=== PATIENT | female | born 1970 | race Caucasian/White ===

== ENCOUNTER 2017-11-11 22:28 | Inpatient (IN) ==
[2017-11-11] MEDS ORDERED: *HR* OxyCODONE/APAP 5/325 TABLET PO ONE (23:25)
--- NOTE | 2017-11-11 23:26 | Emergency Department Note ---
Disposition Clinical Impression: Osteomyelitis Qualifiers: Osteomyelitis type: unspecified type Osteomyelitis location: foot Laterality: right Qualified Code(s): M86.9 - Osteomyelitis, unspecified Hyperglycemia due to type 2 diabetes mellitus Qualifiers: Diabetes mellitus director long term care insulin use: without director long term care use Qualified Code(s ): E11.65 - Type 2 diabetes mellitus with hyperglycemia Disposition: Admitted As Inpatient Condition: Good Referrals: NONE,PCP [Primary Care Provider] - Forms: ED Satisfaction Letter Time of Disposition: 01:25 (Dr Schuster) Lower Extremity Injury HPI - General Chief Complaint: ED Extremity Injury, Lower Stated Complaint: PAIN AND SWELLING TO RIGHT FOOT Time Seen by Provider: 11/11/17 22:53 Source: patient Limitations: no limitations Nursing Notes Reviewed: Yes Vital Signs Reviewed: Yes - History of Present Illness HPI Narrative: Acute on chronic right foot pain for the past 2 weeks. The patient has history of toe amputation in February 2017. The patient did not have a podiatry follow- up after surgery. Pt Subjective Complaint: foot injury Onset (ago): week(s) (2) Place: home Pain Scale: 9 Improves with: immobilization Worsens with: weight bearing, movement, palpation Associated symptoms: Reports: unable to bear weight, swelling - Related Data Home Medications Medication Instructions Recorded Confirmed Albuterol Sulfate [Albuterol 1 puff IH PRN PRN 03/06/15 03/22/17 Inhaler] Albuterol Sulfate [Albuterol 1 puff IH PRN PRN 03/06/15 03/22/17 Inhaler] CloNIDine HCl 0.3 mg PO BID 03/06/15 03/22/17 DiphenhydraMINE [Benadryl] 25 mg PO HS 03/06/15 03/22/17 Duloxetine HCl [Cymbalta] 90 mg PO DAILY 03/06/15 03/22/17 Folic Acid 1 mg PO DAILY 03/06/15 03/22/17 Gabapentin [Neurontin] 600 mg PO QID 03/06/15 03/22/17 Losartan Potassium [Cozaar] 100 mg PO DAILY 03/06/15 11/11/17 Mometasone/Formoterol [Dulera 200 8.8 gm IH BID 03/06/15 11/11/17 Mcg/5 Mcg Inhaler] Montelukast [Singulair] 10 mg PO DAILY 03/06/15 11/11/17 Oxycodone HCl/Acetaminophen 1 each PO Q4HR 03/06/15 11/11/17 [Percocet 10-325 mg Tablet] Spironolactone [Aldactone] 50 mg PO DAILY 03/06/15 11/11/17 Vitamin E 400 unit PO DAILY 03/06/15 11/11/17 hydroCHLOROthiazide 50 mg PO DAILY 03/06/15 11/11/17 [Hydrochlorothiazide] Allergies Allergy/AdvReac Type Severity Reaction Status Date / Time amitriptyline Allergy Severe Difficulty Verified 03/29/17 06:54 Breathing ciprofloxacin Allergy Severe Rash Verified 03/29/17 06:56 codeine Allergy Severe Migraine Verified 03/29/17 06:57 daptomycin [From Cubicin] Allergy Severe Hives Verified 11/11/17 22:29 dichloralphenazone Allergy Severe Migraine Verified 11/11/17 22:29 [From Midrin] Hydromorphone [From Dilaudid] Allergy Severe Anxiety Verified 11/11/17 22:29 ibuprofen Allergy Severe Seizure Verified 11/11/17 22:29 Isometheptene [From Midrin] Allergy Severe Migraine Verified 11/11/17 22:29 latex Allergy Severe Hives Verified 11/11/17 22:29 lisinopril Allergy Unknown unknown Verified 11/11/17 22:29 morphine Allergy Unknown unknown Verified 11/11/17 22:29 nifedipine Allergy Unknown unknown Verified 11/11/17 22:29 Sulfa (Sulfonamide Allergy Unknown unknown Verified 11/11/17 22:29 Antibiotics) sulfamethoxazole Allergy Unknown unknown Verified 11/11/17 22:29 [From Bactrim] sumatriptan [From Imitrex] Allergy Unknown unknown Verified 11/11/17 22:29 trimethoprim [From Bactrim] Allergy Unknown unknown Verified 11/11/17 22:29 All systems ED: reviewed and negative except as stated. Review of Systems: As Per HPI Past Medical History - Past Medical History Medical history: Reports: arthritis, asthma, diabetes, fibromyalgia, hyperlipidemia, hypertension, migraine, other Surgical history: Reports: cholecystectomy, orthopedic, other, sinus surgery, other Psychiatric history: Reports: anxiety, depression - Social History Smoking Status: Current every day smoker Smokeless Tobacco Status: No Alcohol use: Reports: rarely Drug use: Reports: none Physical Exam - General Limitations: no limitations General appearance: alert, in distress - Head Head exam: atraumatic, normocephalic, normal inspection - Neck Neck exam: Present: normal inspection, full ROM, trachea midline - Chest Chest inspection: Present: normal inspection, symmetric chest wall rise - Respiratory Respiratory exam: Present: normal lung sounds bilaterally - Cardiovascular Cardiovascular exam: Present: tachycardia, normal heart sounds. Absent: JVD - Abdominal Exam Abdominal exam: Present: soft, Non-Tender. Absent: tenderness, distention, guarding, rebound, rigidity - Expanded Lower Extremity Exam Hip/Pelvis exam: Present: normal inspection, full ROM Upper leg exam: Present: normal inspection, full ROM Knee exam: Present: normal inspection, full ROM Lower leg exam: Present: normal inspection, full ROM Ankle exam: Present: swelling (Right ankle). Absent: ecchymosis, deformity, crepitus, erythema Foot/toe exam: Present: tenderness (Right foot), swelling, erythema, other (Big Toe amputation) Neurovascular/Tendon exam: Present: normal capillary refill - Neurological Exam Neurological exam: Present: alert, oriented X3 - Psychiatric Psychiatric exam: Present: normal affect, normal mood - Skin Skin exam: Present: warm, dry, intact, normal color Course Vital Signs Temperature 99.4 F 11/11/17 22:38 Pulse Rate 118 11/11/17 22:38 Respiratory Rate 18 11/11/17 22:38 Blood Pressure 117/77 11/11/17 22:38 O2 Sat by Pulse Oximetry 94 11/11/17 22:38 Temperature 99.4 F 11/11/17 22:38 Pulse Rate 100 11/12/17 01:05 Respiratory Rate 14 11/12/17 01:05 Blood Pressure 126/98 11/12/17 01:05 O2 Sat by Pulse Oximetry 94 11/12/17 01:05 Oxygen Delivery Oxygen Delivery Room Air Extremity Injury, Lower - MDM Narrative Medical decision making narrative: Foot pain secondary to potential osteomyelitis. Hyperglycemia secondary to diabetes is uncontrolled secondary to medical noncompliance. The patient was given insulin and IV fluids as well as IV vancomycin for potential osteomyelitis. The patient will be admitted to the hospital for further treatment and evaluation. Patient is amenable with current disposition and plan. Discussed the case with hospitalist. - Lab Data Result diagrams: 11/12/17 00:34 11/12/17 00:34 Lab Results 11/12/17 11/12/17 11/12/17 Range/Units 00:34 00:34 00:34 WBC 16.5 H (4.3-11.1) K/mcL RBC 4.80 (3.82-4.97) M/mcL Hgb 12.7 (11.5-15.4) g/dL Hct 36.9 (35.3-44.9) % MCV 76.9 L (83.0-100.0) fL MCH 26.5 L (28.0-33.3) pg MCHC 34.4 (31.6-35.5) g/dL RDW 13.4 (11.5-14.5) % Plt Count 591 H (140-400) K/mcL MPV 10.4 (9.4-12.4) fL Immature Gran % 0.9 (0-4) % Seg Neutrophils % 84.5 % Lymphocytes % 10.3 % Monocytes % 3.9 % Eosinophils % 0.2 % Basophils % 0.2 % Neutrophils # 13.9 H (1.6-8.9) K/mcL Lymphocytes # 1.7 (0.6-4.6) K/mcL Monocytes # 0.6 (0.0-1.3) K/mcL Eosinophils # 0.0 (0.0-0.6) K/mcL Basophils # 0.0 (0.0-0.2) K/mcL ESR 111 H (0-20) mm/hr Sodium 121 L (136-145) mEq/L Potassium 3.3 L (3.5-5.1) mEq/L Chloride 80 L (98-107) mEq/L Carbon Dioxide 29 (23-29) mEq/L BUN 15 (6-20) mg/dL Creatinine 0.61 (0.60-1.20) mg/dL Est GFR ( Amer) > 60 (> 60) Est GFR (Non-Af Amer) > 60 (> 60) BUN/Creatinine Ratio 25 (6-26) Glucose 547 H* (70-105) mg/dL Calculated Osmolality 278 L (280-300) Calcium 9.7 (8.6-10.3) mg/dL - Radiology Data Radiology results reviewed: Yes I reviewed the patient's radiology results. Foot X-Ray 11/11/17 23:25 IMPRESSION: Evidence of previous transmetatarsal 1st ray amputation. There is mixed osteolysis and sclerosis within the stump. Marked progressive collapse and fragmentation of midfoot structures, with osteolysis also involving the proximal metatarsals. These findings are nonspecific, and can be seen in both aggressive osteomyelitis and neuropathic arthropathy. D/ / Phani Acosta MD / Phani Acosta MD Interpreting Provider: Phani Acosta MD
[2017-11-12] MEDS ORDERED: Insulin Human Regular 15 UNIT in 0.9 % Sodium Chloride 10 ML IV ONE (00:27)
[2017-11-12] MEDS ORDERED: 0.9 % Sodium Chloride 1,000 ML IVC ONE (00:27)
[2017-11-12 00:48] LABS: Basophils % 0.2 %; Eosinophils % 0.2 %; Hematocrit 36.9 % (35.3-44.9); Hemoglobin 12.7 g/dL (11.5-15.4); Immature Granulocytes % 0.9 % (0-4); Lymphocytes # 1.7 K/mcL (0.6-4.6); Lymphocytes % 10.3 %; Mean Corpuscular HGB Conc 34.4 g/dL (31.6-35.5); Mean Corpuscular Hemoglobin 26.5 pg (28.0-33.3); Mean Corpuscular Volume 76.9 fL (83.0-100.0); Mean Platelet Volume 10.4 fL (9.4-12.4); Monocytes % 3.9 %; Neutrophils # 13.9 K/mcL (1.6-8.9); Platelet Count 591 K/mcL (140-400); Red Cell Distribution Width 13.4 % (11.5-14.5); Segmented Neutrophils % 84.5 %
[2017-11-12 00:49] LABS: Monocytes # 0.6 K/mcL (0.0-1.3)
[2017-11-12] MEDS ORDERED: Ondansetron 4 MG/2 ML VIAL ONE ×2 (01:00→04:14)
[2017-11-12] MEDS: Ondansetron 4 MG/2 ML VIAL IVP ONE ×2 (01:02→01:09)
[2017-11-12 01:09] LABS: BUN/Creatinine Ratio 25 (6-26); Blood Urea Nitrogen 15 mg/dL (6-20); Calcium 9.7 mg/dL (8.6-10.3); Carbon Dioxide 29 mEq/L (23-29); Chloride 80 mEq/L (98-107); Glucose 547 mg/dL (70-105); Osmolality,Calculated 278 (280-300); Potassium 3.3 mEq/L (3.5-5.1); Sodium 121 mEq/L (136-145); eGFR For African Americans > 60 (> 60); eGFR For Non-African Americans > 60 (> 60)
[2017-11-12] MEDS ORDERED: *HR* OxyCODONE Immed Rel 5 MG TABLET PO STA (02:32)
[2017-11-12] MEDS ORDERED: Naloxone 0.4 MG/ML INJ IVP PRN (04:14)
[2017-11-12] MEDS ORDERED: Ondansetron 4 MG/2 ML VIAL IVP PRN (04:14)
[2017-11-12] MEDS: cloNIDine HCl 0.1 MG TABLET PO SCH ×2 (08:55→20:47)
[2017-11-12] MEDS: Gabapentin 300 MG CAPSULE PO SCH ×4 (08:57→20:47)
[2017-11-12] MEDS: 0.9 % Sodium Chloride 1,000 ML IVC SCH (08:57)
[2017-11-12] MEDS ORDERED: Folic Acid 1 MG TABLET PO SCH (09:00)
[2017-11-12] MEDS ORDERED: Spironolactone 25 MG TABLET PO SCH (09:00)
[2017-11-12] MEDS ORDERED: hydroCHLOROthiazide 25 MG TABLET PO SCH (09:00)
[2017-11-12] MEDS: *HR* OxyCODONE Immed Rel 5 MG TABLET PO PRN ×2 (09:04→18:41)
[2017-11-12] MEDS: Budesonide/Formoterol 160/4.5 MDI IH SCH ×2 (09:21→22:20)
[2017-11-12] MEDS ORDERED: Dextrose Gel 15 GM PO PRN ×2 (09:42)
[2017-11-12] MEDS ORDERED: *HR* Dextrose 50 % in Water (Syg) 50 ML SYRINGE IVP PRN (09:42)
[2017-11-12] MEDS ORDERED: D5% in Water 1,000 ML IVC PRN (09:42)
[2017-11-12] MEDS ORDERED: Fluconazole 100 MG TABLET PO ONE (11:55)
--- NOTE | 2017-11-12 12:02 | Internal Med History&Physical ---
Date of Encounter: 11/12/17 Time of Encounter: 11:20 Assessment and Plan (1) Osteomyelitis Current visit: Yes Status: Acute Suspect extensive osteomyelitis with cellulitis. Will order foot MRI to further evaluate. Qualifiers: Osteomyelitis type: unspecified type Osteomyelitis location: foot Laterality: right Qualified Code(s): M86.9 - Osteomyelitis, unspecified (2) Electrolyte imbalance Current visit: Yes Status: Acute Hyponatremia due to diuretic use and hyperglycemia. Hypokalemia due to diuretic use. We will give replacement and monitor labs. (3) Microcytosis Current visit: Yes Status: Acute We will order iron studies in a.m. (4) Type 2 diabetes mellitus Current visit: No Status: Chronic Will restart metformin in check hemoglobin A1c. Will do Accu-Cheks with SSI. Qualifiers: Diabetes mellitus ocean transportation intermediary insulin use: with ocean transportation intermediary use Diabetes mellitus complication status: without complication Qualified Code(s): E11.9 - Type 2 diabetes mellitus without complications; Z79.4 - group home (current) use of insulin (5) Hypertension Current visit: No Status: Chronic Will discontinue diuretics and monitor blood pressure Qualifiers: Hypertension type: essential hypertension Qualified Code(s): I10 - Essential (primary) hypertension Internal Medicine - H&P: HPI Chief complaint: Right foot pain and swelling Admitted From: Emergency Dept Plans for Post Hospital Care: Home History of present illness: Ms. Muniz is a 47 year old female who came to emergency room complaining of pain and swelling in her right foot present for several months but worsening over the past few days. She reports she had intermittent fevers and chills for several months but attributed them to menopause. When the pain did not improve she finally obtained transportation to come to emergency room last evening. She was evaluated and found to have leukocytosis with left shift, hyperglycemia , and electrolyte imbalance. Foot x-ray showed probable osteomyelitis. She was started on IV antibiotics and admitted to [facility] floor for ongoing care needs. She reports right great toe amputation February 2017 but states she did not follow -up as recommended with podiatry due to transportation issues. She has not seen her family physician since approximately March 2017. She has not taken clonidine or losartan for several weeks to months. She has not taken hydrochlorothiazide for 2 days. Her cardiovascular history significant for hypertension but she denies [place] heart failure angina DVT or pulmonary embolus. Her musko skeletal is history significant for toe amputation as documented above. She has had right knee arthroscopic surgery, fibromyalgia, trochanteric bursitis, DJD, spinal stenosis, and cervical HNP diagnoses. She denies gout. She states she has not walked on her right foot for several weeks. Past Med Surg Social Fam HX - Past Medical History Medical history: arthritis, asthma, diabetes, fibromyalgia, hyperlipidemia, hypertension, migraine, other Psychiatric history: anxiety, depression - Past Surgical History Surgical History: cholecystectomy, orthopedic, other, sinus surgery, other, vascular surgery - Social History Smoking Status: Current every day smoker Smokeless Tobacco Status: No Alcohol use: rarely Drug use: none - Family History Mother Adopted: No Age: 83 Family Member Ethnicity: Non- Living Status: Still Living Hx Family Cardiac Disorders: Yes Hx Family Respiratory Disorders: Yes Hx Family Cancer: No Hx Family GI Disorders: No Hx Family Genitourinary Disorders: No Hx Family Endocrine Disorder: No Hx Family Musculoskeletal Disorders: No Hx Family Neuromuscular Disorders: No Hx Family Neurologic Disorders: No Hx Family HEENT Disorders: No Hx Family Autoimmune Disorders: No Hx Family Reproductive Disorders: No Hx Family Psychosocial Disorders: No Hx Family Medical Disorders: No Father Adopted: No Living Status: Age at : 59 Cause of : bladder cancer Hx Family Cardiac Disorders: No Hx Family Respiratory Disorders: No Hx Family Cancer: Yes Hx Family GI Disorders: No Hx Family Genitourinary Disorders: Yes Hx Family Endocrine Disorder: No Hx Family Musculoskeletal Disorders: No Hx Family Neuromuscular Disorders: No Hx Family Neurologic Disorders: No Hx Family HEENT Disorders: No Hx Family Autoimmune Disorders: No Hx Family Reproductive Disorders: No Hx Family Psychosocial Disorders: No Hx Family Medical Disorders: No Internal Medicine - H&P: Meds Albuterol Sulfate [Albuterol Inhaler] 1 puff IH PRN PRN 03/06/15 [History] Albuterol Sulfate [Albuterol Inhaler] 1 puff IH PRN PRN 03/06/15 [History] CloNIDine HCl 0.3 mg PO BID 03/06/15 [History] DiphenhydraMINE [Benadryl] 25 mg PO HS 03/06/15 [History] Duloxetine HCl [Cymbalta] 90 mg PO DAILY 03/06/15 [History] Folic Acid 1 mg PO DAILY 03/06/15 [History] Gabapentin [Neurontin] 600 mg PO QID 03/06/15 [History] Losartan Potassium [Cozaar] 100 mg PO DAILY 03/06/15 [History] Mometasone/Formoterol [Dulera 200 Mcg/5 Mcg Inhaler] 8.8 gm IH BID 03/06/15 [ History] Montelukast [Singulair] 10 mg PO DAILY 03/06/15 [History] Oxycodone HCl/Acetaminophen [Percocet 10-325 mg Tablet] 1 each PO Q4HR 03/06/15 [History] Spironolactone [Aldactone] 50 mg PO DAILY 03/06/15 [History] Vitamin E 400 unit PO DAILY 03/06/15 [History] hydroCHLOROthiazide [Hydrochlorothiazide] 50 mg PO DAILY 03/06/15 [History] 3 Allergy/AdvReac Type Severity Reaction Status Date / Time amitriptyline Allergy Severe Difficulty Verified 03/29/17 06:54 Breathing ciprofloxacin Allergy Severe Rash Verified 03/29/17 06:56 codeine Allergy Severe Migraine Verified 03/29/17 06:57 daptomycin [From Cubicin] Allergy Severe Hives Verified 11/11/17 22:29 dichloralphenazone Allergy Severe Migraine Verified 11/11/17 22:29 [From Midrin] Hydromorphone [From Dilaudid] Allergy Severe Anxiety Verified 11/11/17 22:29 ibuprofen Allergy Severe Seizure Verified 11/11/17 22:29 Isometheptene [From Midrin] Allergy Severe Migraine Verified 11/11/17 22:29 latex Allergy Severe Hives Verified 11/11/17 22:29 lisinopril Allergy Unknown unknown Verified 11/11/17 22:29 morphine Allergy Unknown unknown Verified 11/11/17 22:29 nifedipine Allergy Unknown unknown Verified 11/11/17 22:29 Sulfa (Sulfonamide Allergy Unknown unknown Verified 11/11/17 22:29 Antibiotics) sulfamethoxazole Allergy Unknown unknown Verified 11/11/17 22:29 [From Bactrim] sumatriptan [From Imitrex] Allergy Unknown unknown Verified 11/11/17 22:29 trimethoprim [From Bactrim] Allergy Unknown unknown Verified 11/11/17 22:29 Oxycodone [From OxyContin] AdvReac See Verified 11/12/17 02:49 Comments All Systems PM: A 10-system review of systems was performed and is negative for pertinent findings except as documented above in the HPI. Review of systems: Gen.: She states her weight has been stable for several months but has decreased approximately 100 pounds since the May 2016 of her Cardiovascular: As per history of present illness Respiratory: She has smoked since age 15 up to 3 packs per day. She reports PFTs approximately 2006 with diagnosis of asthma. She does not use home oxygen. GI: She has had cholecystectomy. She had pancreatitis 2006 without recurrence. She denies disorders of her liver. : She denies hematuria dysuria or kidney stones Neurologic: She denies large distribution strokes. She reports having 2 seizures with the most recent 2005. The etiology was not determined. Endocrine: She was diagnosed with DM 2 in 1998. She reports she has been out of her metformin for several weeks to months. She claims a diagnosis of PCOS. She has thyroid nodules and had FNA at [facility] and was recommended observation. Hematology/oncology: She denies blood disorders cancers or anemia Psychiatric: She denies anxiety depression or other mental health issues Musko skeletal: As per history of present illness - Constitutional Vitals: Temp Pulse Resp BP Pulse Ox 99.1 F 83 26 130/72 90 11/12/17 11:20 11/12/17 11:20 11/12/17 11:20 11/12/17 11:20 11/12/17 11:20 Exam: Gen.: She is a well-developed well-nourished female who appears in no acute distress at present time HEENT: Head is atraumatic and normocephalic. Eyes: EOMI. There is no scleral icterus. Mouth: Mucosa is moist. Neck: Supple and nontender. There is no thyromegaly or adenopathy noted. Heart: Regular without murmurs gallops or ectopics Lungs: No wheezes or crackles are heard. Abdomen: Soft and nontender. No masses or guarding are noted. Extremities: There is no cyanosis. She has enlargement of the distal right foot especially on the medial side. There is a well-healed surgical scar from amputation of the great toe. There is discoloration that appears to be resolving large ecchymosis involving the lateral mid and proximal foot. There is 1+ edema of the dorsum of the foot that extends up into the lower ankle. The edema is painful to test for pitting. The left foot shows dorsalis pedis and posttibial pulses are trace to 1+ palpable. She has callus on the bottom of her left foot with fissures of the heel and great toe. Neurologic: Mental status: She is talkative and a good historian. Cranial nerves: Smile is symmetric. Forehead wrinkles bilaterally. Tongue protrudes midline. EOMI. Motor: There is no pronator drift. Cerebellar: Finger to nose is intact bilaterally. Skin: Warm and dry Internal Med - H&P Results - Labs CBC & Chem 7: 11/12/17 00:34 11/12/17 00:34
[2017-11-12] MEDS: Insulin LISPRO 300 UNITS/3 ML VIAL SQ SCH ×2 (12:10→18:36)
[2017-11-12] MEDS: *HR* Metformin 500 MG TABLET PO SCH (12:10)
[2017-11-12] MEDS ORDERED: Insulin LISPRO 300 UNITS/3 ML VIAL SQ SCH (21:00)
[2017-11-13] MEDS: *HR* OxyCODONE Immed Rel 5 MG TABLET PO PRN ×2 (04:46→12:23)
[2017-11-13] MEDS: Insulin LISPRO 300 UNITS/3 ML VIAL SQ SCH ×2 (04:54→12:23)
[2017-11-13 06:51] LABS: Chol/HDL Ratio 4.6 (0-4.9)
[2017-11-13 07:03] LABS: Thyroid Stimulating Hormone 4.881 mcIU/mL (0.340-5.600)
[2017-11-13] MEDS: *HR* Metformin 500 MG TABLET PO SCH (07:26)
[2017-11-13] MEDS: cloNIDine HCl 0.1 MG TABLET PO SCH (07:26)
[2017-11-13] MEDS: Gabapentin 300 MG CAPSULE PO SCH ×2 (07:27→12:23)
[2017-11-13] MEDS: 0.9 % Sodium Chloride 1,000 ML IVC SCH (07:27)
[2017-11-13 09:38] LABS: Estimated Average Glucose 484 mg/dl; Hemoglobin A1C 18.5 %
[2017-11-13] MEDS: Budesonide/Formoterol 160/4.5 MDI IH SCH (10:12)
[2017-11-13 10:15] LABS: Vitamin B12 151 pg/mL (250-1100)
[2017-11-13 10:21] LABS: Folate > 22.3 ng/mL (3.0-16.0)
[2017-11-13 10:37] VITALS: BP 102/64
[2017-11-13] MEDS ORDERED: Cyanocobalamin (B-12) 1,000 MCG/ML VIAL IM ONE (11:02)
[2017-11-13 12:26] LABS: Basophils % 0.2 %; Eosinophils # 0.1 K/mcL (0.0-0.6); Eosinophils % 1.1 %; Hematocrit 36.9 % (35.3-44.9); Hemoglobin 11.7 g/dL (11.5-15.4); Immature Granulocytes % 0.9 % (0-4); Lymphocytes # 2.3 K/mcL (0.6-4.6); Mean Corpuscular HGB Conc 31.7 g/dL (31.6-35.5); Mean Corpuscular Hemoglobin 25.7 pg (28.0-33.3); Mean Corpuscular Volume 81.1 fL (83.0-100.0); Mean Platelet Volume 10.3 fL (9.4-12.4); Monocytes # 0.5 K/mcL (0.0-1.3); Monocytes % 3.8 %; Neutrophils # 8.9 K/mcL (1.6-8.9); Platelet Count 516 K/mcL (140-400); Red Blood Count 4.55 M/mcL (3.82-4.97); Red Cell Distribution Width 13.8 % (11.5-14.5)
[2017-11-13 13:29] LABS: BUN/Creatinine Ratio 21 (6-26); Blood Urea Nitrogen 14 mg/dL (6-20); Calcium 9.3 mg/dL (8.6-10.3); Carbon Dioxide 30 mEq/L (23-29); Chloride 88 mEq/L (98-107); Glucose 411 mg/dL (70-105); Osmolality,Calculated 276 (280-300); Potassium 4.3 mEq/L (3.5-5.1); Sodium 124 mEq/L (136-145); eGFR For African Americans > 60 (> 60); eGFR For Non-African Americans > 60 (> 60)
--- NOTE | 2017-11-13 13:46 | Discharge Summary ---
Date of Encounter: 11/13/17 Time of Encounter: 11:00 - Discharge Diagnosis (1) Osteomyelitis Priority: Primary Status: Acute Qualifiers: Osteomyelitis type: unspecified type Osteomyelitis location: foot Laterality: right Qualified Code(s): M86.9 - Osteomyelitis, unspecified (2) Microcytosis Priority: Secondary Status: Acute (3) Type 2 diabetes mellitus Priority: Secondary Status: Chronic Qualifiers: Diabetes mellitus senior care insulin use: with termite inspector use Diabetes mellitus complication status: with unspecified complications Qualified Code(s) : E11.8 - Type 2 diabetes mellitus with unspecified complications; Z79.4 - longterm (current) use of insulin; Z79.4 - termite inspector (current) use of insulin; Z79.4 - longterm (current) use of insulin; Z79.4 - longterm (current) use of insulin (4) Hypertension Priority: Secondary Status: Chronic Qualifiers: Hypertension type: essential hypertension Qualified Code(s): I10 - Essential (primary) hypertension (5) Hyponatremia Priority: Secondary Status: Acute (6) Hypokalemia Priority: Secondary Status: Resolved Hospital course: Ms. Muniz is a 47 year old female who came to emergency room complaining of pain and swelling in her right foot present for several months but worsening over the past few days. She reports she had intermittent fevers and chills for several months but attributed them to menopause. When the pain did not improve she finally obtained transportation to come to emergency room last evening. She was evaluated and found to have leukocytosis with left shift, hyperglycemia , and electrolyte imbalance. Foot x-ray showed probable osteomyelitis. She was started on IV antibiotics and admitted to [facility] for ongoing care needs. Initial orders were written by the emergency room physician. I saw her on November 12 and performed a history and physical. An MRI was ordered further evaluate her right foot and ankle. There was a large abscess/phlegmon measuring 2.5 x 3.1 x 8.2 cm extending into the upper ankle area. There was evidence of significant aggressive osteomyelitis seen. I spoke with the patient about these findings and she agreed to be transferred to [facility] for further surgical intervention. Additional lab findings showed anemia testing with iron 20, transferrin saturation 8%, transferrin 184, ferritin 248, B12 151, and folate >22.3. She received 1000 g vitamin B12 IM. She will need replacement iron therapy also. Hemoglobin A1c returned significantly elevated at 18.5%. Metformin was restarted upon admission. Her physicians can continue to monitor blood sugars upon transfer. Supplemental sodium and potassium were given. Hypokalemia resolved. Sodium level had risen 124 by the day of transfer. - Time Spent with Patient Total time spent providing and/or coordinating discharge services: - Discharge Medications Home Medications: Albuterol Sulfate [Albuterol Inhaler] 1 puff IH PRN PRN 03/06/15 [History] Albuterol Sulfate [Albuterol Inhaler] 1 puff IH PRN PRN 03/06/15 [History] CloNIDine HCl 0.3 mg PO BID 03/06/15 [History] DiphenhydraMINE [Benadryl] 25 mg PO HS 03/06/15 [History] Duloxetine HCl [Cymbalta] 90 mg PO DAILY 03/06/15 [History] Folic Acid 1 mg PO DAILY 03/06/15 [History] Gabapentin [Neurontin] 600 mg PO QID 03/06/15 [History] Losartan Potassium [Cozaar] 100 mg PO DAILY 03/06/15 [History] Mometasone/Formoterol [Dulera 200 Mcg/5 Mcg Inhaler] 8.8 gm IH BID 03/06/15 [ History] Montelukast [Singulair] 10 mg PO DAILY 03/06/15 [History] Oxycodone HCl/Acetaminophen [Percocet 10-325 mg Tablet] 1 each PO Q4HR 03/06/15 [History] Spironolactone [Aldactone] 50 mg PO DAILY 03/06/15 [History] Vitamin E 400 unit PO DAILY 03/06/15 [History] hydroCHLOROthiazide [Hydrochlorothiazide] 50 mg PO DAILY 03/06/15 [History] Allergies/Adverse Reactions: 3 Allergy/AdvReac Type Severity Reaction Status Date / Time amitriptyline Allergy Severe Difficulty Verified 03/29/17 06:54 Breathing ciprofloxacin Allergy Severe Rash Verified 03/29/17 06:56 codeine Allergy Severe Migraine Verified 03/29/17 06:57 daptomycin [From Cubicin] Allergy Severe Hives Verified 11/11/17 22:29 dichloralphenazone Allergy Severe Migraine Verified 11/11/17 22:29 [From Midrin] Hydromorphone [From Dilaudid] Allergy Severe Anxiety Verified 11/11/17 22:29 ibuprofen Allergy Severe Seizure Verified 11/11/17 22:29 Isometheptene [From Midrin] Allergy Severe Migraine Verified 11/11/17 22:29 latex Allergy Severe Hives Verified 11/11/17 22:29 lisinopril Allergy Unknown unknown Verified 11/11/17 22:29 morphine Allergy Unknown unknown Verified 11/11/17 22:29 nifedipine Allergy Unknown unknown Verified 11/11/17 22:29 Sulfa (Sulfonamide Allergy Unknown unknown Verified 11/11/17 22:29 Antibiotics) sulfamethoxazole Allergy Unknown unknown Verified 11/11/17 22:29 [From Bactrim] sumatriptan [From Imitrex] Allergy Unknown unknown Verified 11/11/17 22:29 trimethoprim [From Bactrim] Allergy Unknown unknown Verified 11/11/17 22:29 Oxycodone [From OxyContin] AdvReac See Verified 11/12/17 02:49 Comments Date of admission: 11/12/17 12:03 Primary care physician: PCP NONE - Constitutional Vitals: Temp Pulse Resp BP Pulse Ox 98.7 F 78 18 102/64 94 11/13/17 10:36 11/13/17 10:36 11/13/17 10:36 11/13/17 10:36 11/13/17 10:36 - Patient Status Disposition: Transfer Other Condition: Good - Discharge Instructions
== END 2017-11-13 15:15 | disposition other institution (70) | DRG 638 ==
LOC: EMEROOPIK 22:28 → INPPIK 22:28
PROVIDERS: ADMIT Internal Medicine; ATTEND Internal Medicine